=== PATIENT | male | born 1960 | race Caucasian/White ===

== ENCOUNTER 2019-01-31 11:27 | Emergency (ER) | payer OTHER, SELFPAY ==
[2019-01-31 11:44] VITALS: BP 124/72; PULSE 87; RESP 18; TEMP 36.8; O2SAT 96; BMI 27.6
--- NOTE | 2019-01-31 11:48 | ED_ITS ---
HPI - Extremity Problem <ALEXIS Alfaro - Last Filed: 01/31/19 15:21> General Chief complaint: Extremity Problem,Nontraumatic Stated complaint: INSIDE OF RIGHT KNEE PAIN X7 DAYS Time Seen by Provider: 01/31/19 11:32 Source: patient Mode of arrival: Wheelchair Limitations: no limitations History of Present Illness HPI Narrative: 58yo male presents to the emergency department complaining of right medial knee pain for the past few weeks. He states he has an appointment with an orthopedic this coming and has already had x-rays which indicate mild degenerative arthritis. However, he states he was moving a lot of heavy boxes the past few days and noticed an increase of pain and difficulty bearing weight on his knee. He states he has been applying cream to the area but has not taken anything such as ibuprofen for pain. Patient reports he is getting on a flight in 1-2 days and is worried about the pain. He denies foot pain, ankle pain, trauma to the area, hip pain, falls, head trauma, nausea, vomiting, diarrhea, chest pain, shortness of breath, or other concerns. Related Data Previous Rx's Medication Instructions Recorded ketorolac 10 mg PO TID PRN 5 Days #20 tab 01/31/19 Allergies Allergy/AdvReac Type Severity Reaction Status Date / Time INGREDIENT: NO KNOWN - NO Allergy Unknown Uncoded 07/03/17 12:16 KNOWN DRUG ALLERGY Review of Systems <ALEXIS Alfaro - Last Filed: 01/31/19 15:21> Review of Systems Narrative: REVIEW OF SYSTEMS: GENERAL: Denies fever or chills. HENT: No head trauma. EYES: No double vision or vision loss. CARDIOVASCULAR: No chest pain or syncope. RESPIRATORY: No shortness of breath or cough. GASTROINTESTINAL: No nausea, vomiting, diarrhea, or constipation. GENITOURINARY: No flank pain or dysuria. MUSCULOSKELETAL: Complains of right knee pain, see HPI. INTEGUMENTARY: No rash, lesions, or pruritus. NEURO: No numbness, tingling. PSYCH: No behavior or mood changes. Patient History <ALEXIS Alfaro - Last Filed: 01/31/19 15:21> Social History Smoking Status: Former smoker Exam <ALEXIS Alfaro - Last Filed: 01/31/19 15:21> Narrative Exam Narrative: PHYSICAL EXAMINATION: GENERAL: Well groomed, alert, and cooperative. Answers questions promptly and appropriately. Vital signs noted. HENT: Normocephalic, atraumatic. EYES: Symmetrical, sclera white, no periorbital swelling. CARDIOVASCULAR: S1 and S2 sounds normal. Regular rate and rhythm, no murmurs, cl icks, or bruits. No pedal edema. RESPIRATORY: Normal respiratory rate, trachea midline, airway patent. No stridor, nasal flaring or accessory muscle use. Lungs are clear in all llanos. MUSCULOSKELETAL: Tenderness to medial aspect of joint line to right knee. Positive Justina's sign to right meniscus. Full extension and full flexion of right knee. Small amount of joint effusion. No erythema, ecchymosis, or increased temperature to area. Ligament appear stable (negative drawer sign). Patient has difficulty bearing weight to right leg. Equal tone and mass bilaterally. No spinal tenderness or deformities. EXTREMITIES: CMS intact. No pedal edema. SKIN: Warm, dry, soft, appropriate color for ethnicity. No lesions, rashes, or wounds. NEURO: Alert and Oriented X 3. No sensory deficits. PSYCH: Appropriate affect and mood. Initial Vital Signs Initial Vital Signs: Vital Signs Temperature 98.2 F 01/31/19 11:44 Pulse Rate 87 01/31/19 11:44 Respiratory Rate 18 01/31/19 11:44 Blood Pressure 124/72 01/31/19 11:44 Pulse Oximetry 96 01/31/19 11:44 <Amara Barcenas DO - Last Filed: 02/01/19 07:35> Initial Vital Signs Initial Vital Signs: Vital Signs Temperature 98.2 F 01/31/19 11:44 Pulse Rate 87 01/31/19 11:44 Respiratory Rate 18 01/31/19 11:44 Blood Pressure 124/72 01/31/19 11:44 Pulse Oximetry 96 01/31/19 11:44 Course <SenaALEXIS Gill - Last Filed: 01/31/19 15:21> Course Course Narrative: Patient was given a Toradol IM injection to help with pain, he was given a straight knee brace which helped improve his weight-bearing. Patient was offered crutches but declined stating he would rather get them at the thrift store. Orders Ordered: Discontinued Medications Ketorolac Tromethamine (Toradol) 30 mg IM NOW ONE Stop: 01/31/19 11:48 Last Admin: 01/31/19 11:55 Dose: 30 mg Documented by: RAYRAY Vital Signs Vital signs: Vital Signs - 8 hr 01/31/19 11:44 Temperature 98.2 F Pulse Rate 87 Respiratory Rate 18 Blood Pressure 124/72 Pulse Oximetry 96 <Amara Barcenas DO - Last Filed: 02/01/19 07:35> Orders Ordered: Discontinued Medications Ketorolac Tromethamine (Toradol) 30 mg IM NOW ONE Stop: 01/31/19 11:48 Last Admin: 01/31/19 11:55 Dose: 30 mg Documented by: RAYRAY Vital Signs Vital signs: Vital Signs - 8 hr 01/31/19 11:44 Temperature 98.2 F Pulse Rate 87 Respiratory Rate 18 Blood Pressure 124/72 Pulse Oximetry 96 MDM - Extremity (Nontraumatic) <ALEXIS Alfaro - Last Filed: 01/31/19 15:21> MDM Narrative Medical decision making narrative: Differential includes meniscus injury versus exacerbation of osteoarthritis. Less likely fracture as patient had a copy of his x-ray that he received a few days ago which stated mild arthritis without acute fracture. Patient denied any trauma to this area signs the images were taken so further x-rays were not indicated. Due to patient's location of pain, description of caring multiple heavy boxes while twisting, and medial joint line tenderness, and concern for meniscus injury. Patient was given a prescription for Toradol p.o. to help with pain while on the airplane. He was encouraged to follow up with his orthopedic as scheduled this week for further testing and evaluation. Return precautions given for new or worsening symptoms. Discharge Plan Departure Patient Disposition: Home Clinical Impression: Acute knee pain Qualifiers: Laterality: right Qualified Code(s): M25.561 - Pain in right knee Discharge Date/Time: 01/31/19 12:12 Instructions: DI for Meniscal Tear, DI for Knee Pain Activity Restrictions/Additional Instructions: Thank you for entrusting me with your care today. As discussed, it is possible your pain may be due to arthritis and/or a meniscus injury. We have given you a brace for your knee, please use crutches as needed for pain. I prescribed ketorolac, this is a pain medication and anti-inflammatory, do not take this medication with ibuprofen. You may take Tylenol additionally with this medication. Please follow up with the orthopedic as scheduled on . Return emergency department for new or worsening symptoms such as chest pain, syncope, facial droop, dizziness, or other concerns. Prescriptions: New ketorolac 10 mg tablet 10 mg PO TID PRN (Reason: pain) 5 Days Qty: 20 RF: 0
[2019-01-31] MEDS: KETOROLAC 60 MG/2 ML VIAL 30 MG IM (11:55)
== END 2019-01-31 12:12 | disposition home or self-care (01) ==
PROVIDERS: Emergency Provider Nurse Practitioner
DX: M25.561 Pain in right knee (principal)
CPT/HCPCS: 29515; 29530; 96372; 99282; 99283; J1885

== ENCOUNTER → 2025-01-01 08:08 | Outpatient (CLI) | payer OTHER, SELFPAY ==
--- NOTE | 2025-01-01 08:12 | DI.NM.S_ITS ---
PROCEDURE: NM EXERCISE TREADMILL NON NUC COMPARISON: None. INDICATIONS: Hypertension FINDINGS: Patient exercised per the standard Joel protocol. Total exercise time was 9 minutes and 27 seconds. Test was terminated secondary to fatigue. Maximum heart rate obtained is 149 bpm which is 96% of maximum predicted heart rate. Maximum blood pressure is 200/110[place] [address]. HARRISON -18%. 10.1 METS. No ischemic changes noted. Occasional PACs noted at peak stress. No ventricular arrhythmias present. Normal heart rate and hypertensive blood pressure response to exercise. No chest pains voiced. IMPRESSION: 1. Negative exercise treadmill stress test for ischemia. 2. Good exercise capacity. 3. Hypertensive response to exercise. Dictated by: Albin Aguillon M.D. on 01/01/2025 at 17:15 Approved by: Albin Aguillon M.D. on 01/01/2025 at 17:17
== END ==
PROVIDERS: PCP Nurse Practitioner Acute Care; Referring Provider Nurse Practitioner Acute Care; Visit Provider Nurse Practitioner Acute Care
DX: I10 Essential (primary) hypertension (principal)
CPT/HCPCS: 93017